=== PATIENT | male | born 1960 ===

== ENCOUNTER 2017-09-28 19:03 | Emergency (ER) | payer OTHER ==
[2017-09-28 19:03] VITALS: BMI 29.2
[2017-09-28 19:41] VITALS: BP 132/82; PULSE 64; RESP 20; TEMP 98; O2SAT 99
[2017-09-28 21:08] LABS: BASO % 0.6 % (0.0-2.0); EOS # 0.1 K/uL (0.0-0.7); EOS % 1.8 % (0.0-4.0); HEMOGLOBIN 14.8 g/dL (12.0-18.0); LYMPH % 35.5 % (20.0-40.0); MEAN CELL VOLUME 94.2 fL (80.0-94.0); MEAN CORPUSCULAR HEMOGLOBIN 32.9 pg (27.0-31.0); MEAN PLATELET VOLUME 9.2 fL (7.2-11.7); MONO # 0.8 K/uL (0.0-0.8); MONO % 13.6 % (0.0-10.0); NEUT # 2.7 K/uL (1.8-7.0); NEUT % 48.5 % (50.0-75.0); NRBC % 0.1 % (0.0-2.0); RBC 4.49 Mil/uL (4.40-5.90); RED CELL DISTRIBUTION WIDTH 12.7 % (11.5-14.5); WHITE BLOOD COUNT 5.6 K/uL (4.8-10.8)
[2017-09-28 21:40] LABS: ALB/GLOB RATIO 1.2 (1.0-2.1); ALT/SGPT 25 U/L (21-72); AST/SGOT 25 U/L (17-59); BLOOD UREA NITROGEN 14 mg/dL (9-20); GFR AFRICAN-AMERICAN > 60; GFR NON-AFRICAN AMERICAN > 60
--- NOTE | 2017-09-28 21:51 | C.PDOC ---
History Of Present Illness 56 year old male, whose PMHx includes HTN and Hyperlipidemia, presents to the ED for evaluation of left hand numbness which began 5 days ago. Patient reports the numbness started at his left index finger and now progressed to his left pinky finger. Notes it occasional travels up his forearm. States he would shake his hand to improve the symptoms. Patient also states he had palpitations "the other day." Patient reports experiencing similar episode many years ago with self resolution. Denies headache, chest pain, sob, neck pain, weakness, or fever. Patient denies any recent trauma/injury to the site at this time. Time Seen by Provider: 09/28/17 20:00 Chief Complaint (Nursing): Upper Extremity Problem/Injury History Per: Patient History/Exam Limitations: no limitations Onset/Duration Of Symptoms: Days (5) Current Symptoms Are (Timing): Still Present Additional History Per: Patient Past Medical History Reviewed: Historical Data, Nursing Documentation, Vital Signs Vital Signs: Last Vital Signs Temp 98.0 F 09/28/17 19:37 Pulse 64 09/28/17 19:37 Resp 20 09/28/17 19:37 BP 132/82 09/28/17 19:37 Pulse Ox 99 09/28/17 22:34 - Medical History PMH: Arthritis, Back Problems, Hypercholesterolemia Denies: Chronic Kidney Disease Surgical History: No Surg Hx - [facility] Procedures ENDOSC POLYPECTOMY OF LG INTEST (10/20/14) Family History: States: Unknown Family Hx - Social History Hx Tobacco Use: Yes ("some days") Hx Alcohol Use: Yes (soc) Hx Substance Use: No - Immunization History Hx Tetanus Toxoid Vaccination: No Hx Influenza Vaccination: Yes Hx Pneumococcal Vaccination: No Review Of Systems Cardiovascular: Positive for: Palpitations Neurological: Positive for: Numbness (left index finger, left pinky finger, and left arm ) Physical Exam - Physical Exam Appears: Well, Non-toxic, No Acute Distress Skin: Normal Color, Warm, Dry Head: Atraumatic, Normacephalic Eye(s): bilateral: Normal Inspection, PERRL, EOMI Ear(s): Bilateral: Normal Nose: Normal Oral Mucosa: Moist Throat: Normal, No Erythema, No Exudate Neck: Normal ROM, Supple Chest: Symmetrical, No Deformity, No Tenderness Cardiovascular: Rhythm Regular Respiratory: Normal Breath Sounds, No Rales, No Rhonchi, No Wheezing Gastrointestinal/Abdominal: Soft, No Tenderness Extremity: Normal ROM, No Tenderness, Capillary Refill (less than 2 seconds ), No Deformity, No Swelling Neurological/Psych: Oriented x3, Normal Speech, Normal Cognition, Normal Cranial Nerves, Normal Motor (55/ against resistance), Normal Sensation Gait: Steady ED Course And Treatment - Laboratory Results Result Diagrams: 09/28/17 21:04 09/28/17 21:04 ECG: Interpreted By Me, Viewed By Me ECG Rhythm: Sinus Rhythm Interpretation Of ECG: Normal Sinus Rhythm at rate 62bpm. Rate From EC O2 Sat by Pulse Oximetry: 99 (on RA) Pulse Ox Interpretation: Normal Progress Note: On re-examination, patient notes that he is now experiencing left -sided chest pain. Denies sOB. Case discussed with Dr. Jose J Hemphill who accepts patient for admission for chest pain. On re-evaluation, pt asks to be discharged. The patient declines admission, and wishes to leave the Emergency Department. This action is against my medical advice to the patient and the decision was made with informed refusal. The patient was told that admission is necessary and a full explanation of the rationale was given. The risks of leaving were explained to the patient and include, but are not limited to, worsening of known or currently unknown conditions, permanent disability and from undiagnosed or untreated conditions The patient has the capacity to make this informed decision and understands the clinical situation and my explanation of the risks of leaving. The patient voluntarily accepts these risks , and a signed AMA form documenting our conversation was obtained. The patient was given the opportunity to ask questions and reconsider. The patient was encouraged to return to the Emergency Department at any time for further care. CAse discussed with Dr Hager, agreedupon plan and dsicharge. Disposition - Disposition Disposition: HOME/ ROUTINE Disposition Time: 22:32 Condition: STABLE Additional Instructions: Follow up with your primary doctor in 1-2 days. Return to ER if symptoms persist or worsen. Prescriptions: Naproxen [Naprosyn] 1 tab PO BID PRN #20 tab PRN Reason: Pain Instructions: Tendonitis (DC) Forms: [employer] ([place]) [employer] ([place]), (AMA) Informed Refusal - Clinical Impression Clinical Impression: Numbness of right hand - PA / SCREEN CLEANER / Resident Statement MD/DO has reviewed & agrees with the documentation as recorded. - Scribe Statement The provider has reviewed the documentation as recorded by the Scribe (Jacquie Hemphill) All medical record entries made by the Scribe were at my direction and personally dictated by me. I have reviewed the chart and agree that the record accurately reflects my personal performance of the history, physical exam, medical decision making, and the department course for this patient. I have also personally directed, reviewed, and agree with the discharge instructions and disposition.
[2017-09-28 21:52] LABS: CK-MB 0.47 ng/mL (0.0-3.38)
--- NOTE | 2017-09-28 23:45 | CP.PCM.HP ---
Past Patient History - Infectious Disease Hx of Infectious Diseases: None - Past Medical History & Family History Past Medical History?: Yes - Past Social History Smoking Status: Current Some Days Smoker - CARDIAC Hx Hypercholesterolemia: Yes - PULMONARY Hx Respiratory Disorders: No - NEUROLOGICAL Hx Neurological Disorder: No - HEENT Hx HEENT Problems: No - RENAL Hx Chronic Kidney Disease: No - ENDOCRINE/METABOLIC Hx Endocrine Disorders: No - HEMATOLOGICAL/ONCOLOGICAL Hx Blood Disorders: No - INTEGUMENTARY Hx Dermatological Problems: No - MUSCULOSKELETAL/RHEUMATOLOGICAL Hx Arthritis: Yes - GASTROINTESTINAL Hx Gastrointestinal Disorders: No - GENITOURINARY/GYNECOLOGICAL Hx Genitourinary Disorders: Yes Hx Urinary Tract Infection: Yes - PSYCHIATRIC Hx Substance Use: No - SURGICAL HISTORY Hx Surgeries: Yes Hx Arthroscopy: Yes Hx Orthopedic Surgery: Yes (L knee, L AND R shoulder, R knee) Other/Comment: ROTATOR CUFF AND LEFT KNEE SURGERY YEARS AGO - ANESTHESIA Hx Anesthesia: Yes Hx Anesthesia Reactions: No Meds Home Medications: Home Medication List Medication Instructions Recorded Confirmed Type Naproxen [Naprosyn] 1 tab PO BID PRN #20 tab 09/28/17 Rx Allergies/Adverse Reactions: Allergies Allergy/AdvReac Type Severity Reaction Status Date / Time No Known Allergies Allergy Verified 09/28/17 19:41 Results - Vital Signs Recent Vital Signs: Last Vital Signs Temp 98.0 F 09/28/17 19:37 Pulse 64 09/28/17 19:37 Resp 20 09/28/17 19:37 BP 132/82 09/28/17 19:37 Pulse Ox 99 09/28/17 22:34 - Labs Result Diagrams: 09/28/17 21:04 09/28/17 21:04 Labs: Laboratory Results - last 24 hr 09/28/17 09/28/17 21:04 21:04 WBC 5.6 RBC 4.49 Hgb 14.8 Hct 42.3 MCV 94.2 H MCH 32.9 H MCHC 35.0 RDW 12.7 Plt Count 206 MPV 9.2 Neut % (Auto) 48.5 L Lymph % (Auto) 35.5 Whitley % (Auto) 13.6 H Eos % (Auto) 1.8 Baso % (Auto) 0.6 Neut # (Auto) 2.7 Lymph # (Auto) 2.0 Whitley # (Auto) 0.8 Eos # (Auto) 0.1 Baso # (Auto) 0.0 Sodium 143 Potassium 4.0 Chloride 102 Carbon Dioxide 31 H Anion Gap 14 BUN 14 Creatinine 1.1 Est GFR ( Amer) > 60 Est GFR (Non-Af Amer) > 60 Random Glucose 93 Calcium 9.0 Total Bilirubin 0.5 AST 25 ALT 25 Alkaline Phosphatase 46 Total Creatine Kinase 88 CK-MB (Mass) 0.47 Troponin I < 0.0120 Total Protein 7.2 Albumin 4.0 Globulin 3.2 Albumin/Globulin Ratio 1.2
--- NOTE | 2017-09-29 09:31 | RAD ---
HISTORY: SOB COMPARISON: None TECHNIQUE: Chest PA and lateral FINDINGS: LUNGS: No focal consolidation is seen. PLEURA: No pleural effusion is identified. CARDIOVASCULAR: Heart size is within normal limits. OSSEOUS STRUCTURES: Mild Degenerative changes noted of the spine. VISUALIZED UPPER ABDOMEN: Unremarkable. OTHER FINDINGS: None. IMPRESSION: No acute cardiopulmonary process seen.
[2017-09-29] MEDS ORDERED: Enoxaparin 40 mg Syringe SC SCH (10:00)
[2017-09-29] MEDS ORDERED: Pantoprazole 40 mg EC Tab PO SCH (10:00)
--- NOTE | 2017-09-29 12:24 | CARD ---
APPROVED REPORT EKG Measurement Heart [id number] MA 160P61 [id number] <Conclusion> Normal sinus rhythm Normal ECG
== END 2017-09-28 22:47 | disposition home or self-care (01) ==
LOC: C.ER 19:03 → UNDOADMOB 22:16 → C.9E 22:16 → C.6T 22:51 → C.9E 09-29 01:15 → C.6T 09-29 01:15
DX: R20.2 Paresthesia of skin (principal); I10 Essential (primary) hypertension; E78.00 Pure hypercholesterolemia, unspecified; F17.210 Nicotine dependence, cigarettes, uncomplicated